=== PATIENT | female | born 1995 | race Caucasian/White ===

== ENCOUNTER 2019-07-17 03:57 | Emergency (ER) | payer OTHER, SELFPAY ==
[2019-07-17 04:04] VITALS: BP 157/95; PULSE 114; RESP 18; TEMP 38; O2SAT 98
--- NOTE | 2019-07-17 04:08 | ED.GENADULT ---
HPI - General Adult General Chief complaint: Upper Respiratory Infection Stated complaint: s/t Time Seen by Provider: 07/17/19 04:01 Source: patient and family Mode of arrival: ambulatory Limitations: no limitations History of Present Illness HPI narrative: Patient is a 24-year-old female who presents for evaluation of cough, runny nose, congestion and fever. Patient reports fever have been approximately 10 1-1 02 Fahrenheit, minimally responsive to Robitussin. Patient denies taking any Tylenol or ibuprofen this morning. She denies shortness of breath, reports dry cough. She reports runny nose, sneezing and feeling achy. Patient did not get a flu vaccine this year. Patient also reports sore throat and bilateral ear pain. No ear drainage. Related Data Allergies Allergy/AdvReac Type Severity Reaction Status Date / Time No Known Allergies Allergy Verified 07/17/19 04:21 Review of Systems Review of Systems: Narrative: CONSTITUTIONAL: Reports fever and chills EYES: Denies visual changes, redness, or discharge. ENT: Reports rhinorrhea, congestion, sore throat and otalgia CARDIOVASCULAR: Denies chest pain, palpitations, or edema. RESPIRATORY: Reports dry cough, denies shortness of breath GASTROINTESTINAL: Denies nausea, vomiting, or diarrhea. GENITOURINARY: Denies dysuria or hematuria. SKIN: Denies rash or itching. MUSCULOSKELETAL: Denies back pain, joint pain, reports myalgias. NEUROLOGIC: Denies headache, numbness, or weakness. [facility] Social History Social History (Updated 07/17/19 @ 04:17 by Marian Chandler MD) Smoking status: Never smoker Alcohol intake: never Substance use: never Living arrangements: with family Gender identity (if verbalized by the patient): Female Exam Narrative: Exam Narrative: GENERAL: Well-appearing, well-nourished, and in no acute distress. HEAD: Normocephalic, atraumatic. EYES: PERRLA and EOMI. ENT: Nares clear, + rhinorrhea, no epistaxis. Mucous membranes moist. TMs clear bilaterally without effusion or perforation. Oropharynx mildly erythematous, tonsils without exudate. Uvula is midline. No trismus. NECK: Supple. CHEST: Clear to auscultation. No respiratory distress. No wheezing or respiratory distress. HEART: Borderline tachycardic rate and regular rhythm. No murmur heard. Normal peripheral pulses. ABDOMEN: Soft, nontender, nondistended, normal active bowel sounds. EXTREMITIES: Normal range of motion. No edema. SKIN: Warm, dry, no rash. NEURO: No focal deficits. Alert and oriented x3 Course Course Emergency Course: Patient presented for cough, cold symptoms, myalgias, found to be febrile and tachycardic at the time of assessment. She is positive for influenza B. Patient has no shortness of breath, no vomiting. She is tolerating oral intake, denies any chest or abdominal pain. Patient was given antipyretic medication, starting oral intake and was given fluids. She is discharged home with anti-inflammatories for supportive care. Shared decision-making occurred with the patient, her symptoms started on Sunday, that she is outside the Tamiflu window, and patient does not wish to be prescribed Tamiflu. Patient then discharged in stable condition. Vital Signs Vital signs: Vital Signs Temperature 38.0 C H 07/17/19 04:04 Pulse Rate 114 H 07/17/19 04:04 Respiratory Rate 18 07/17/19 04:04 Blood Pressure 157/95 H 07/17/19 04:04 Pulse Oximetry 98 07/17/19 04:04 Temperature 37.7 C H 07/17/19 05:00 Pulse Rate 102 H 07/17/19 04:59 Respiratory Rate 18 07/17/19 04:59 Blood Pressure 116/64 07/17/19 04:59 Pulse Oximetry 97 07/17/19 04:59 Medical Decision Making Vital Signs Vital Signs: Vital Signs Temperature 38.0 C H 07/17/19 04:04 Pulse Rate 114 H 07/17/19 04:04 Respiratory Rate 18 07/17/19 04:04 Blood Pressure 157/95 H 07/17/19 04:04 Pulse Oximetry 98 07/17/19 04:04 Temperature 37.7 C H 07/17/19 05:00 Pulse Rate 102
[2019-07-17 04:20] VITALS: BP 157/95; PULSE 114; RESP 18; TEMP 38; O2SAT 98
[2019-07-17] MEDS: ACETAMINOPHEN 500 MG TABLET 1000 MG PO (04:25)
[2019-07-17] MEDS: IBUPROFEN 600 MG TABLET PO (04:25)
[2019-07-17] MEDS: DEXAMETHASONE SOD PHOS INJ 4 MG/ML VIAL 10 MG BY MOUTH (04:26)
[2019-07-17 04:59] VITALS: BP 116/64; PULSE 102; RESP 18; TEMP 37.7; O2SAT 97
[2019-07-17 05:00] VITALS: TEMP 37.7
== END 2019-07-17 05:07 | disposition home or self-care (01) ==
PROVIDERS: Emergency Provider Emergency Medicine
DX: J10.1 Influenza due to other identified influenza virus with other respiratory manifestations (principal)
CPT/HCPCS: 87081; 87804; 87880; 99283; A9270; J1100